=== PATIENT | female | born 1980 | race Two or more races ===

== ENCOUNTER 2019-09-18 15:01 | Emergency (ER) | payer MEDICAID ==
[~2019-09-18] VITALS: Ht 172.7 cm; Wt 82.6 kg
[2019-09-18 15:22] VITALS: BP 139/91
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
== END 2019-09-18 16:13 | disposition home or self-care (01) ==
LOC: ER 15:05
DX: S16.1XXA Strain of muscle, fascia and tendon at neck level, initial encounter (principal); S39.012A Strain of muscle, fascia and tendon of lower back, initial encounter; V49.49XA Driver injured in collision with other motor vehicles in traffic accident, initial encounter; Y93.89 Activity, other specified; Y92.488 Other paved roadways as the place of occurrence of the external cause; Y99.8 Other external cause status

== ENCOUNTER 2020-02-14 17:56 | Emergency (ER) | payer MEDICAID ==
[~2020-02-14] VITALS: Ht 170.2 cm; Wt 78.9 kg
[2020-02-14 18:17] VITALS: BP 126/80
--- NOTE | 2020-02-14 18:25 | NUR ---
ROB GARCIA AT BEDSIDE FOR EVAL.
[2020-02-14] MEDS ORDERED: HYDROCODONE/APAP 5/325MG 1 EACH TABLET ONE (18:28)
[2020-02-14] MEDS ORDERED: HYDROCODONE/APAP 5/325MG 1 EACH TABLET PO ONE (18:30)
--- NOTE | 2020-02-14 18:31 | NUR ---
michelle at bedside for x-ray
--- NOTE | 2020-02-14 19:17 | NUR ---
Patient discharged to home in stable condition. Written and verbal after care instructions given. Patient verbalizes understanding of instruction.
== END 2020-02-14 19:19 | disposition home or self-care (01) ==
LOC: ER 17:56
DX: S42.254A Nondisplaced fracture of greater tuberosity of right humerus, initial encounter for closed fracture (principal); W01.198A Fall on same level from slipping, tripping and stumbling with subsequent striking against other object, initial encounter; Y93.89 Activity, other specified; Y92.89 Other specified places as the place of occurrence of the external cause; Y99.8 Other external cause status
CPT/HCPCS: 73030-TC; 73060-TC

== ENCOUNTER 2024-01-18 22:25 | Emergency (ER) | payer MEDICAID ==
[~2024-01-18] VITALS: Ht 167.6 cm; Wt 90.7 kg
[2024-01-19 00:14] VITALS: BP 153/86; TEMP 98.5; O2SAT 98
== END 2024-01-19 00:14 | disposition home or self-care (01) ==
LOC: ER 22:30
DX: R06.02 Shortness of breath (principal)
CPT/HCPCS: 71045-TC